=== PATIENT | female | born 1990 | race Hispanic/Latino ===

== ENCOUNTER 2018-05-26 01:28 | Inpatient (IN) | payer BC ==
--- NOTE | 2018-05-26 01:27 | P.HP ---
Certification for Inpatient Patient admitted to: Inpatient With expected LOS: <2 Midnights Patient will require the following post-hospital care: None Practitioner: I am a practitioner with admitting privileges, knowledge of patient current condition, hospital course, and medical plan of care. Services: Services provided to patient in accordance with Admission requirements found in Title 42 Section 412.3 of the Code of Federal Regulations Patient History Date of Service: 05/26/18 Reason for admission: PROM History of Present Illness: 27 y.o. G1 at 39w3d admitted to L&D for PROM. She has had adequate care with Dr. Ronquillo and denies any medical problems or issues with this . She has a h/o HSV and has been on prophylaxis and denies any signs of symptoms. GRAZYNA 05/30/2018. GBS negative. Home medications list reviewed: No - Past Medical/Surgical History Past Medical History: Patient denies medical history Past Surgical History: Patient denies surgical history - Social History Smoking Status: Never smoker Alcohol use: No CD- Drugs: No Caffeine use: No Place of Residence: Home Review of Systems 10-point ROS is otherwise unremarkable Physical Examination - Physical Exam General: Alert, In no apparent distress, Oriented x3 HEENT: Atraumatic, Normocephalic Respiratory: Other (Normal effort) Cardiovascular: Normal pulses Musculoskeletal: No swelling, No tenderness Integumentary: No rashes, No breakdown Neurological: Normal speech, Normal strength at 5/5 x4 extr, Cranial nerves 3- 12 intact External genitalia: No lesions, Non-tender Female Exam - Female Pelvic Vagina: Normal, [place], Other (SSE: no lesions or vesicles noted) Cervix: Dilation (1), Effacement (50), station (-2) Uterus: Non-tender, Soft, Gravid - Obstetrics heart rate tracing: Category 1 Contractions: Frequency (4-6 min) Amniotic membrane: SROM (Clear fluid noted) Assessment and Plan - Problems (Diagnosis) (1) PROM (premature rupture of membranes) Status: Acute Plan: Admit to L&D, routine labs ordered. Start pitocin for augmentation if no progress in 2 hours. Epidural per patient request; place gonzalez with epidural. Qualifiers: PROM gestational age: full term (2) Genital herpes affecting in third trimester Status: Chronic Plan: Pt has been on prophylaxis. She denies signs and symptoms of an outbreak. SSE negative for lesions. - Advance Directives Does patient have a Living Will: No Does patient have a Durable POA for Healthcare: No
[~2018-05-26 01:28] MED LIST: BUTORPHANOL 1 MG/ML INJ IV PRN; DIPHENHYDRAMINE 50 MG/ML VIAL IV PRN; METOCLOPRAMIDE 10 MG/2mL INJ IV PRN; ONDANSETRON 4 MG/2 ML VIAL IV PRN; Ringers Lactate 1,000 ML IV PRN
[2018-05-26] MEDS ORDERED: Ringers Lactate 1,000 ML IV SCH (02:00)
[2018-05-26] MEDS ORDERED: OXYTOCIN/LR 20 UNIT/1,000 ML BAG IV SCH (02:00)
[2018-05-26 02:03] LABS: RPR Titer ND
[2018-05-26 02:10] LABS: Absolute Monocytes 0.4 K/uL (0.1-1.3); Absolute Neutrophil 3.3 K/uL (1.8-8.0); Basophils % 1.2 % (0-1.3); Eosinophils % 3.3 % (0-4.4); Hematocrit 36.9 % (36.0-45.0); Lymphocytes % 34.2 % (15.3-44.8); MCH 30.3 pg (27.0-35.0); MCV 89.5 fL (80-100); MPV 10.5 fL (7.6-11.3); Monocytes % 6.2 % (3.3-12.3); RBC Red Blood Cell Count 4.12 M/uL (3.86-4.86)
[2018-05-26 02:18] LABS: Potassium 4.3 mmol/L (3.5-5.1)
[2018-05-26 02:41] VITALS: BMI 32.0
[2018-05-26] MEDS ORDERED: FENTANYL CITR 100 MCG/2 ML IV ONE (06:33)
[2018-05-26] MEDS ORDERED: ROPIVACAINE HCL 100 ML IV PRN (06:33)
[2018-05-26] MEDS ORDERED: ROPIVACAINE HCL 0.2% 20ML AMP IV ONE (06:36)
[2018-05-26] MEDS ORDERED: METHYLERGONOVINE 0.2MG/ML AMP IM ONE (08:41)
[2018-05-26] MEDS ORDERED: CARBOPROST TROME 250 MCG/ML IM ONE (08:41)
--- NOTE | 2018-05-26 08:46 | P.PN ---
Date of Service: 05/26/18 Tracing reviewed: discontinuous, 120 baseline, moderate variability, occasional variable noted TOco: q 2-3 min Vitals reviewed Exam: 1-2 cm/50/-1 Discussed with RN Brittany who states patient just got her epidural placed. Pitcon is at 10 mIU/min. Upon inquiry, RN stated that overnight shift nurse, Stacie held pitocin due to low baseline, I was not notified. Review tracing once again shortly.
--- NOTE | 2018-05-26 08:54 | P.PN ---
Date of Service: 05/26/18 RN called to report patient she was going to place an FSE and upone repeat exam , pt is now 9 cm. Tracin, moderate variability, no accelerations, +early decelerations [place]: q 2-3 min Continue current care. Allow to labor down. Notify me when patient feels the urge to push and start second stage. She agreed.
[2018-05-26] MEDS ORDERED: NA CIT/CITRIC AC 30 ML ORAL UDC PO ONE (09:28)
[2018-05-26] MEDS ORDERED: CEFAZOLIN/SWI 2gm 2 GM/20 ML SYR IVP SCH (09:45)
[2018-05-26] MEDS ORDERED: LIDOCAINE 2% W/EPI 1:200,000 MPF 20 ML VIAL IM ONE (10:25)
[2018-05-26] MEDS ORDERED: LIDOCAINE 2% MPF 5 ML VIAL ONE (10:25)
--- NOTE | 2018-05-26 11:02 | P.OP ---
Preoperative diagnosis: PROM, term IUP Postoperative diagnosis: Same Primary procedure: VAVD Secondary procedure: Right mediolateral episiotomy Anesthesia: Combined spinal-epidural Estimated blood loss: 500 cc Specimen: None Findings: See operative report Operative Technique: FINDINGS: James female fetus in GUERA presentation. APGARS of 9/9 at 1 and 5 minutes, respectively. Weight of 7 # 4 oz. Right mediolateral episiotomy, left philip-urethral tear. Amniotic fluid was clear. Cord noted around wrist, feet, and body. Normal appearing placenta. EBL: 300 cc. Stage I: 11h 15 min; stage II: 41 min. PROCEDURE: Description: This is a 27-year-old G1 who was admitted for PROM. Pitocin was started for augmentation. She progressed to complete and 2nd stage was started. During pushing, however, significant variables were noted. After several pushes, slow progress on further descent of head and variables continued. We discussed use of a Kiwi vacuum, benefits, and risks to help expedite delivery and she accepted. head was at +1 station. A right mediolateral episitomy was done. Next, the vacuum was placed and the correct placement in front of the posterior fontanelle was confirmed digitally. With the patient's next contraction, the vacuum was activated and a gentle downward pressure was used. There were two pop offs and the baby's head delivered with the 3rd pull atraumatically over a RML episiotomy. The vacuum suction was released and it was removed. There was a total of 3 pulls. Next, the baby's shoulders and remainder of the body delivered easily at 09:56. Umbilical cord was noted to be wrapped aroung the body, wrist, and both feet. The baby's mouth was bulb-suctioned and she was placed on the patient's abdomen for skin to skin contact. She was vigorous, crying, and moving all extremities. Spontaneous delivery of an intact placenta with a three-vessel cord was noted at 10:03. On examination, there was extension of the episiotomy to a 2nd degree. It was repaired in the usual fashion using 2-0 vicryl. On vaginal exam , there were no noted cervical or vaginal sidewall lacerations. A left philip- urethral tear was repaired using 3-0 chromic in a continuous, running unlocked fashion. Estimated blood loss was 300 cc. Mother and are in recovery doing well at this time. Complications: None Fluids & blood products: mIVF Transferred to: Recovery Room Condition: Good
[2018-05-26] MEDS ORDERED: IBUPROFEN 400 MG TAB PO PRN (11:03)
[2018-05-26] MEDS ORDERED: METOCLOPRAMIDE 5 MG TAB PO PRN (11:06)
[2018-05-26] MEDS ORDERED: ONDANSETRON 4 MG (ODT) TAB PO PRN (11:06)
[2018-05-26] MEDS: ACETAMINOPHEN 500 MG TAB PO SCH (18:49)
[2018-05-26] MEDS ORDERED: DOCUSATE NA/SENNA CONC 1 TAB PO SCH (21:00)
[2018-05-27] MEDS: ACETAMINOPHEN 500 MG TAB PO SCH (04:15)
[2018-05-27 04:53] LABS: Absolute Monocytes 0.6 K/uL (0.1-1.3); Absolute Neutrophil 7.4 K/uL (1.8-8.0); Basophils % 0.6 % (0-1.3); Eosinophils % 1.9 % (0-4.4); Hematocrit 27.8 % (36.0-45.0); Lymphocytes % 19.5 % (15.3-44.8); MCV 90.5 fL (80-100); MPV 9.8 fL (7.6-11.3); Monocytes % 5.8 % (3.3-12.3); RBC Red Blood Cell Count 3.07 M/uL (3.86-4.86)
[2018-05-27] MEDS ORDERED: BISACODYL 10 MG RECTAL SUPP RECT SCH (09:00)
[2018-05-27] MEDS ORDERED: FAMOTIDINE 20 MG/2 ML VIAL IV ONE (09:29)
[2018-05-27 14:05] VITALS: BP 114/63; TEMP 98.4
[2018-05-27 22:31] LABS: RPR (Rapid Plasma Reagin) NON-REACT (NON-REACT)
--- NOTE | 2018-05-28 05:05 | DS ---
Date of Discharge: 05/27/2018 Final Hospital Discharge Diagnosis: A 39-week , delivered. Complications: Mild uterine atony. Procedures: Placement of epidural catheter, Pitocin augmentation of labor, spontaneous controlled va ginal delivery of viable female infant. Hospital Course: The patient is a 27-year-old female, 1, para 0, at 39+ weeks' gest ation, admitted with premature rupture of membranes, not in active labor after augmentation of labor. She delivered a 7-pound 4-ounce female , 9, 9 with a right mediolateral episiotomy. Ashley rice was dismissed on the first day, ambulatory on a select diet with routine post vaginal de livery activity restrictions. To be seen back in my office in 6 weeks. She was to continue taking h er iron and vitamins. Lab work obtained during this hospital stay included an admission hem oglobin and hematocrit of 12.5 and 36.9, dismissal of 9.5 and 27.8. She is Rh positive blood type an d rubella immune. She was dismissed with prescription for Tylenol No. 3 #10 for pain relief and to c ontinue taking her iron and vitamins. DEYSI/ELODIA Voice ID: [id number] Report ID: [id number]
[2018-05-28 12:18] LABS: HBsAG Nonreactive (Nonreactive)
== END 2018-05-27 13:55 | disposition home or self-care (01) | DRG 774 ==
LOC: 2ND-WC 01:28
PROVIDERS: ADMIT Specialist; ATTEND Specialist
PROC: 10D07Z6 Extraction of Products of Conception, Vacuum, Via Natural or Artificial Opening (ICD-10-PCS; principal; 2018-05-26)
PROC: 0W8NXZZ Division of Female Perineum, External Approach (ICD-10-PCS; 2018-05-26)
PROC: 0UQMXZZ Repair Vulva, External Approach (ICD-10-PCS; 2018-05-26)
DX: O42.02 Full-term premature rupture of membranes, onset of labor within 24 hours of rupture (principal); O98.32 Other infections with a predominantly sexual mode of transmission complicating childbirth; Z3A.39 39 weeks gestation of pregnancy; Z37.0 Single live birth; O75.89 Other specified complications of labor and delivery; O69.82X0 Labor and delivery complicated by other cord entanglement, without compression, not applicable or unspecified; O76 Abnormality in fetal heart rate and rhythm complicating labor and delivery; O71.82 Other specified trauma to perineum and vulva; A60.00 Herpesviral infection of urogenital system, unspecified; Z79.899 Other long term (current) drug therapy
CPT/HCPCS: 36415; 80048; 85025; 86592; 86850; 86900; 86901; 87340; J0595; J2210; J2590; J2765; J2795; J3010